=== PATIENT | female | born 1975 | race Caucasian/White ===

== ENCOUNTER → 2017-03-02 12:42 | Outpatient (CLI) | payer OTHER ==
[2013-04-22 14:58] VITALS: BMI 34.5
[~2017-03-02 12:42] MED LIST: ADDERALL 10 MG10 MG PO; GLUCOPHAGE1000 MG PO; LANTUS SOL100 UNIT/1; LEXAPRO20 MG PO; NORCO 5/325 TAB1 TA1 PO; NOVOLOG100 U/M1
== END | disposition home or self-care (01) ==
LOC: D.CT 12:42
DX: N64.52 Nipple discharge (principal); R51 Headache

== ENCOUNTER 2017-03-22 08:39 | Outpatient (CLI) | payer OTHER ==
[2013-04-22 14:58] VITALS: BMI 34.5
== END 2017-03-22 14:02 ==
LOC: D.MAMMO 08:39
DX: N64.52 Nipple discharge (principal); R51 Headache

== ENCOUNTER 2017-04-18 15:56 | Outpatient (CLI) | payer OTHER ==
[2013-04-22 14:58] VITALS: BMI 34.5
== END 2017-04-18 16:34 ==
LOC: D.MAMMO 15:56
DX: N64.52 Nipple discharge (principal)

== ENCOUNTER 2020-03-26 19:54 | Inpatient (IN) | payer OTHER ==
[~2020-03-26] VITALS: Ht 172.7 cm; Wt 101.2 kg
[~2020-03-26 19:54] MED LIST changes: +HYDROCODON-ACE1 EA10 PO; +LANTUS INS100 UNITS/ SC; -LANTUS SOL100 UNIT/1; -NORCO 5/325 TAB1 TA1 PO; -NOVOLOG100 U/M1; +NOVOLOG100 UNIT/1 SC
[2020-03-26] MEDS ORDERED: SYNTHROID75 MCG PO (20:17)
[2020-03-26 20:23] LABS: BASOPHILS 0.7 % (0-2); EOSINOPHILS 0.7 % (0-7); HEMATOCRIT 44.7 % (36.0-48.0); HEMOGLOBIN 13.7 g/dL (12-16); IMMATURE GRANULOCYTES 0.7 % (0-5); MCH 26.1 pg (26.0-34.0); MCHC 30.6 g/dL (31.0-37.0); MCV 85.1 fL (80.0-100.0); MEAN PLATELET VOLUME 9.7 fL (7.4-10.4); NEUTROPHILS 67.9 % (40-80); PLATELET COUNT 436 10x3/uL (130-400); RBC 5.25 10x6/uL (4.00-5.40); WBC 10.1 10x3/uL (4.8-10.8)
[2020-03-26 20:27] LABS: ALBUMIN 3.6 g/dL (3.4-5.0); ANION GAP 34.8 mmol/L (8-16); BILIRUBIN - TOTAL 0.44 mg/dL (0.2-1.3); CALCIUM 8.4 mg/dL (8.5-10.1); CREATININE - SERUM 1.2 mg/dL (0.6-1.3); PROTEIN - SERUM 8.6 g/dL (6.4-8.2)
[2020-03-26 20:38] LABS: CARBON DIOXIDE 6.2 mmol/L (21.0-32.0)
[2020-03-26 20:50] LABS: PHOSPHOROUS 4.3 mg/dL (2.5-4.9); THYROID STIMULATING HORMONE 5.23 uIU/mL (0.36-3.74)
--- NOTE | 2020-03-26 21:00 | NUR ---
INSULIN DRIP STARTED AT 5 UNITS/HR PER DR. CHONG ORDERS.
[2020-03-26 21:34] LABS: HCG SERUM NEGATIVE (NEGATIVE)
[2020-03-26 21:48] LABS: UDS - AMPHET NEGATIVE QUAL (NEGATIVE); UDS - BARB NEGATIVE QUAL (NEGATIVE); UDS - BENZO NEGATIVE QUAL (NEGATIVE); UDS - COCAINE NEGATIVE QUAL (NEGATIVE); UDS - OPIATE NEGATIVE QUAL (NEGATIVE); UDS - PCP NEGATIVE QUAL (NEGATIVE); UDS - THC NEGATIVE QUAL (NEGATIVE)
[2020-03-26 22:13] LABS: BILIRUBIN NEGATIVE (NEGATIVE); GLUCOSE 1000 mg/dL (NEGATIVE); KETONE LARGE mg/dL (NEGATIVE); NITRITE NEGATIVE (NEGATIVE); SPECIFIC GRAVITY 1.025 (1.005-1.020); UROBILINOGEN NORMAL (NORMAL)
[2020-03-26 22:45] VITALS: BP 114/66
--- NOTE | 2020-03-26 22:45 | NUR ---
PT REC'D TO ROOM CVO1, AWAKE, ALERT, AND ORIENTED X 4, LEFT FOREARM PIV NS @ 125 AND INSULIN GTT @ 5 UNITS/HR, PT ASSISTED TO SINK TO BRUSH TEETH AND ASSISTED TO BED, ALL MONITORS ESTABLISHED, PT DENIES PAIN AT THIS TIME, SR UP X 2, BED IN LOW POSITION, CALL LIGHT IN REACH.
[2020-03-26] MEDS ORDERED: VITAMIN D5000 UNI1 PO (22:57)
[2020-03-26 23:00] VITALS: BP 144/76
--- NOTE | 2020-03-26 23:15 | NUR ---
FSBS 211, INSULIN GTT ADJUSTED TO 4.5 UNITS/HR, PT HAS A DEXCOM CONTINUOUS GLUCOSE MONITOR IN RIGHT UPPER ARM, WILL MONITOR CLOSELY FOR CHANGES.
[2020-03-27] VITALS (25 sets, daily range): BP systolic 92–132; BP diastolic 45–80; Ht 172.7 cm; Wt 101.2 kg
--- NOTE | 2020-03-27 01:30 | NUR ---
PT RESTING ON LEFT SIDE, EYES CLOSED, RESP EVEN AND UNLABORED, BP STABLE, VSS.
--- NOTE | 2020-03-27 03:30 | NUR ---
REASSESSMENT COMPLETED, NO CHANGES FROM PREVIOUS ASSESSMENT
--- NOTE | 2020-03-27 06:00 | NUR ---
AM MEDS GIVEN ORDERED, PT STATES HEADACHE IS BETTER, VSS, WILL CONT TO MONITOR FOR CHANGES.
--- NOTE | 2020-03-27 08:32 | NUR ---
PT C/O MALAVE THIS AM. DILAUDID GIVEN AND ZOFRAN BECAUSE PT REPORTS THAT SHE GETS NAUSEATED WITH DILAUDID.
[2020-03-27 10:23] LABS: CALC OSMOLALITY 274 mosm/kg (275-300); CALCIUM 7.7 mg/dL (8.5-10.1); CHLORIDE - SERUM 106 mmol/L (98-107); CREATININE - SERUM 0.8 mg/dL (0.6-1.3); GLUCOSE 129 mg/dL (74-106); MAGNESIUM - SERUM 1.8 mg/dL (1.8-2.4); POTASSIUM - SERUM 3.3 mmol/L (3.5-5.1); SODIUM 137 mmol/L (136-145); UREA NITROGEN 11 mg/dL (7-18); eGFR NON AFRICAN AMERICAN 83 mL/min (90-120)
[2020-03-27 10:24] LABS: BASOPHILS 0.5 % (0-2); CARBON DIOXIDE 17.9 mmol/L (21.0-32.0); EOSINOPHILS 2.8 % (0-7); HEMATOCRIT 36.9 % (36.0-48.0); HEMOGLOBIN 11.7 g/dL (12-16); IMMATURE GRANULOCYTES 0.3 % (0-5); LYMPHOCYTES 33.9 % (15-50); MCHC 31.7 g/dL (31.0-37.0); NEUTROPHILS 52.5 % (40-80); RDW 13.9 % (11.5-14.5)
[2020-03-27 10:29] LABS: PLATELET COUNT 342 10x3/uL (130-400); WBC 6.2 10x3/uL (4.8-10.8)
[2020-03-27 16:08] LABS: ANION GAP 14.9 mmol/L (8-16); CALCIUM 7.6 mg/dL (8.5-10.1); CARBON DIOXIDE 21.9 mmol/L (21.0-32.0); MAGNESIUM - SERUM 1.7 mg/dL (1.8-2.4); POTASSIUM - SERUM 3.8 mmol/L (3.5-5.1)
--- NOTE | 2020-03-27 18:57 | NUR ---
ASSISTED PT TO BATHROOM TO VOID. STEADY GAIT.
[2020-03-27 19:02] LABS: HCG URINE NEGATIVE (NEGATIVE)
--- NOTE | 2020-03-27 19:30 | NUR ---
REPORT REC'D AND CARE ASSUMED, REC'D PT SITTING UP IN BED ON ROOM AIR, AWAKE, ALERT, AND ORIENTED X 4, CM-SR, DEXCOM CGM IN RIGHT UPPER ARM, PT COMPLAINS OF SLIGHT HEADACHE BEGINNING AGAIN, RIGHT A/C PIV PATENT SALINE LOCKED, LEFT FOREARM PIV WITH NS WITH 20KCL @ 100CC/HR, NO TENDERNESS OR REDNESS NOTED, PT DENIES NEEDS, SR UP X 2, BED IN LOW POSITION, CALL LIGHT IN REACH.
--- NOTE | 2020-03-27 21:25 | NUR ---
EVENING MEDS GIVEN ORDERED, FSBS 333, PER CONTINUOUS GLUCOSE MONITOR 332, 8 UNITS HUMALOG ADMINISTERED, PT FINISHED DINNER SALAD AND CRACKERS FOR A BEDTIME SNACK, ASSISTED PT UP TO BATHROOM TO VOID, WASHED HANDS AND BRUSHED TEETH INDEPENDENTLY, BACK TO BED WITHOUT DIFFICULTY, PT COMPLAINS OF MIGRAINE LIKE HEADACHE, DILAUDID 1MG GIVEN SLOW IVP ALONG WITH 4MG ZOFRAN GIVEN SLOW IVP, PT DENIES FURTHER NEEDS, WILL MONITOR CLOSELY FOR CHANGES.
--- NOTE | 2020-03-27 23:00 | NUR ---
REASSESSEMENT COMPLETED, PT RESTING ON LEFT SIDE EYES CLOSED RESP EVEN AND UNLABORED, VSS, DENIES PAIN, WILL CONT TO MONITOR FOR CHANGES.
[2020-03-28] VITALS (23 sets, daily range): BP systolic 96–178; BP diastolic 49–84
--- NOTE | 2020-03-28 02:00 | NUR ---
NO CHANGES IN STATUS AT THIS TIME.
--- NOTE | 2020-03-28 03:30 | NUR ---
REASSESSMENT COMPLETED, PT ASSISTED UP OUT OF BED TO GO TO THE BATHROOM, PT BACK TO BED, DENIES PAIN OR NEEDS.
--- NOTE | 2020-03-28 05:45 | NUR ---
LAB AT BS.
[2020-03-28 05:46] LABS: BASOPHILS 0.4 % (0-2); EOSINOPHILS 3.6 % (0-7); HEMATOCRIT 35.2 % (36.0-48.0); HEMOGLOBIN 10.9 g/dL (12-16); IMMATURE GRANULOCYTES 0.4 % (0-5); LYMPHOCYTES 43.7 % (15-50); MCH 25.8 pg (26.0-34.0); MCV 83.2 fL (80.0-100.0); MEAN PLATELET VOLUME 9.3 fL (7.4-10.4); MONOCYTES 7.4 % (2-11); NEUTROPHILS 44.5 % (40-80); RBC 4.23 10x6/uL (4.00-5.40); RDW 14.2 % (11.5-14.5); WBC 4.8 10x3/uL (4.8-10.8)
[2020-03-28 05:51] LABS: PLATELET COUNT 263 10x3/uL (130-400)
[2020-03-28 05:59] LABS: CALC OSMOLALITY 283 mosm/kg (275-300); CALCIUM 8.1 mg/dL (8.5-10.1); CARBON DIOXIDE 20.6 mmol/L (21.0-32.0); CHLORIDE - SERUM 106 mmol/L (98-107); CREATININE - SERUM 0.7 mg/dL (0.6-1.3); GLUCOSE 322 mg/dL (74-106); POTASSIUM - SERUM 4.1 mmol/L (3.5-5.1); SODIUM 137 mmol/L (136-145); UREA NITROGEN 8 mg/dL (7-18); eGFR NON AFRICAN AMERICAN > 90 mL/min (90-120)
--- NOTE | 2020-03-28 07:50 | NUR ---
BREAKFAST TRAY SERVED AND PT EATING WITH OUT PROBLEMS. NEW ORDERS VERIFIED THIS AM.
--- NOTE | 2020-03-28 09:10 | NUR ---
PT OOB TO BATHROOM. BATH SET UP AND PT BATHED SELF WITH LITTLE ASST. PT C/O MALAVE AND IS ASKING FOR ZOFRAN TO GO WITH DILAUDID. MEDS GIVEN.
--- NOTE | 2020-03-28 10:12 | NUR ---
BS GOING UP TO 269. SSI INTERMEDIATE NEW ORDER. 4UNITS HUMALOG GIVEN.
--- NOTE | 2020-03-28 11:55 | NUR ---
PT NOT WANTING 10U HUMALOG AND POINTS OUT THAT HER BS IS GOING DOWN. REPORTED TO DR PARK. DR PARK STATES THAT SHE CAN HAVE LESS THAN ORDERED DOSE IF SHE WANTS. 5U GIVEN PER PTS WISHES.
[2020-03-28 12:04] LABS: CALC OSMOLALITY 280 mosm/kg (275-300); CALCIUM 8.3 mg/dL (8.5-10.1); CARBON DIOXIDE 20.7 mmol/L (21.0-32.0); CHLORIDE - SERUM 104 mmol/L (98-107); CREATININE - SERUM 0.8 mg/dL (0.6-1.3); GLUCOSE 295 mg/dL (74-106); POTASSIUM - SERUM 3.8 mmol/L (3.5-5.1); SODIUM 136 mmol/L (136-145); UREA NITROGEN 8 mg/dL (7-18); eGFR NON AFRICAN AMERICAN 83 mL/min (90-120)
--- NOTE | 2020-03-28 13:17 | NUR ---
PT AMB SINGH WITH PT 180FT. STEADY GAIT WITH WALKER.
--- NOTE | 2020-03-28 14:17 | NUR ---
PT TAKING BS READING ON HER CONTINOUS BS MONITOR AND BS 237. PT IS ASKING FOR THE OTHER 5 UNITS NOW. 5U NONSCHEDULED DOSE GIVEN. SSI WAS FOR 10U AT NOON. 5 GIVEN AT 12 AND 5 GIVEN NOW PER PTS REQUEST.
--- NOTE | 2020-03-28 15:10 | NUR ---
BS 180 ON PTS CONTINOUS GLUCOSE MONITOR. PT VISITING WITH SISTER.
--- NOTE | 2020-03-28 18:13 | NUR ---
PT CONVERTED TO NSR AFTER CORDARONE BOLUS GIVEN. BP 130/69.
--- NOTE | 2020-03-28 21:50 | NUR ---
REFUSED 12U. REQUESTED ONLY 6 U HUMALOG. 6 UNITS HUMALOG ADMIN
[2020-03-29] VITALS (16 sets, daily range): BP systolic 105–158; BP diastolic 53–93
[2020-03-29 05:55] LABS: BASOPHILS 0.7 % (0-2); HEMATOCRIT 33.9 % (36.0-48.0); HEMOGLOBIN 10.4 g/dL (12-16); LYMPHOCYTES 49.7 % (15-50); MCH 25.2 pg (26.0-34.0); MCHC 30.7 g/dL (31.0-37.0); MCV 82.1 fL (80.0-100.0); MEAN PLATELET VOLUME 9.3 fL (7.4-10.4); MONOCYTES 8.4 % (2-11); NEUTROPHILS 38.2 % (40-80); PLATELET COUNT 247 10x3/uL (130-400); RBC 4.13 10x6/uL (4.00-5.40); RDW 14.2 % (11.5-14.5); WBC 4.3 10x3/uL (4.8-10.8)
[2020-03-29 06:05] LABS: CALC OSMOLALITY 280 mosm/kg (275-300); CALCIUM 8.1 mg/dL (8.5-10.1); CARBON DIOXIDE 21.9 mmol/L (21.0-32.0); CHLORIDE - SERUM 108 mmol/L (98-107); CREATININE - SERUM 0.6 mg/dL (0.6-1.3); MAGNESIUM - SERUM 1.6 mg/dL (1.8-2.4); PHOSPHOROUS 2.5 mg/dL (2.5-4.9); POTASSIUM - SERUM 3.6 mmol/L (3.5-5.1); SODIUM 139 mmol/L (136-145); UREA NITROGEN 8 mg/dL (7-18); eGFR NON AFRICAN AMERICAN > 90 mL/min (90-120)
[2020-03-29 06:18] LABS: GLUCOSE 187 mg/dL (74-106)
--- NOTE | 2020-03-29 09:13 | NUR ---
0700 PT RECIEVED ALERT AND ORIENTED VSS DENIES PAIN, PIV PATENT, DRESSING CDI, SEE SHIFT ASSESSMENT FOR DETAILS 0900 TOOK AM MEDS WITHOUT DIFFICULTY, ATE BREAKFAST AND TOOK INSULIN PRESCRIBED
--- NOTE | 2020-03-29 09:42 | NUR ---
Nutrition Follow-up: Eating well. Reports that she has been diabetic for ~16 years. Has been working with Dr. Waldrop on an insulin regimen but states that she is scared of having low Glu so has been keeping Glu high on purpose. Reports wt loss of ~45# over the past 4 mos, as well as diet changes to minimize carb intake. Diet: Diabetic PO intake: 100% x 4 Wt: 214# (03/28); 208.5# (03/27) Last BM: 03/26 Labs noted: Glu 187, Ca 8.1, Mg 1.6 Meds noted: Lantus, Humalog, KCl/NS @ 100, Pepcid, electrolyte protocol -Discussed diet, normal Glu levels, and side effects of uncontrolled DM. Pt had not questions. Will attempt to reinforce info prior to d/c. -Monitor wt. -RD following.
--- NOTE | 2020-03-29 12:44 | NUR ---
PT TO TRANSFER TO 2124. SPOKE WITH DR TIRADO AND NOTIFIED THAT ON PREVIOUS SHIFTS PT REQUESTING DIFFERENT DOSES OF INSULIN.
--- NOTE | 2020-03-29 13:00 | NUR ---
REPORT CALLED TO [facility] TO TRANSFER TO 2124
--- NOTE | 2020-03-29 13:18 | NUR ---
pt arived VIA WHEELCHAIR, ALERT AND ORIENTE,D UP WITHOTU ASIST. REQUESTING A SHOWER. TECH ASSISTING. NO COMPLAINTS OR CONCERNS OTHER THAN SHOWER REQUEST. CL IN REACH, SRX2.
--- NOTE | 2020-03-29 13:26 | NUR ---
PT IN SHOWER.
--- NOTE | 2020-03-30 01:50 | NUR ---
RESTING WITH EYES CLOSED, RESPERATIONS EVEN, NO S/S DISTRESS NOTED.
--- NOTE | 2020-03-30 03:24 | NUR ---
I have reviewed this patient and I concur with the Shift Assessment completed by the Licensed Practical Nurse today this shift.
[2020-03-30 04:23] VITALS: BP 137/75
[2020-03-30 06:33] LABS: HEMATOCRIT 32.1 % (36.0-48.0); HEMOGLOBIN 9.9 g/dL (12-16); MCH 25.1 pg (26.0-34.0); MCHC 30.8 g/dL (31.0-37.0); MCV 81.5 fL (80.0-100.0); MEAN PLATELET VOLUME 9.8 fL (7.4-10.4); PLATELET COUNT 232 10x3/uL (130-400); RBC 3.94 10x6/uL (4.00-5.40); RDW 14.1 % (11.5-14.5); WBC 3.9 10x3/uL (4.8-10.8)
[2020-03-30 06:57] LABS: CALCIUM 7.9 mg/dL (8.5-10.1); CARBON DIOXIDE 21.9 mmol/L (21.0-32.0); CHLORIDE - SERUM 106 mmol/L (98-107); CREATININE - SERUM 0.7 mg/dL (0.6-1.3); MAGNESIUM - SERUM 1.6 mg/dL (1.8-2.4); POTASSIUM - SERUM 3.9 mmol/L (3.5-5.1); SODIUM 138 mmol/L (136-145); eGFR NON AFRICAN AMERICAN > 90 mL/min (90-120)
[2020-03-30 06:58] LABS: CALC OSMOLALITY 291 mosm/kg (275-300); PHOSPHOROUS 3.9 mg/dL (2.5-4.9); UREA NITROGEN 11 mg/dL (7-18)
[2020-03-30 06:59] LABS: GLUCOSE 403 mg/dL (74-106)
[2020-03-30 10:03] VITALS: BP 151/81
[2020-03-30 12:09] LABS: EOSINOPHILS 2 % (0-7); LYMPHOCYTES 55 % (15-50); MONOCYTES 4 % (2-11); NEUTROPHILS 37 % (40-80); PLATELET ESTIMATE NORMAL
[2020-03-30 13:19] VITALS: BP 163/80
== END 2020-03-30 14:43 | disposition home or self-care (01) | DRG 638 ==
LOC: D.ER 19:54 → D.CVICU 21:21 → D.M2 21:21
PROVIDERS: Emergency Medicine; ADMIT Family Medicine; ATTEND Family Medicine
DX: E11.10 Type 2 diabetes mellitus with ketoacidosis without coma (principal); E87.1 Hypo-osmolality and hyponatremia; D64.9 Anemia, unspecified; E03.9 Hypothyroidism, unspecified; F32.9 Major depressive disorder, single episode, unspecified; G89.29 Other chronic pain; M54.9 Dorsalgia, unspecified